=== PATIENT | female | born 1970 | race Caucasian/White ===

== ENCOUNTER → 2018-09-09 | Outpatient (CLI) | payer OTHER ==
--- NOTE | 2018-09-09 13:29 | MM ---
Reason for exam: additional evaluation requested from abnormal screening. History: Patient is postmenopausal and has history of other cancer at age 41. Family history of breast cancer in paternal grandmother at age 70 and breast cancer in paternal cousin at age 56. Physical Findings: Breast exam preformed at baseline screening. MG Work Up Mamm w CAD RT CC with magnification, ML with magnification, and ML view(s) were taken of the right breast. The breast tissue is heterogeneously dense. This may lower the sensitivity of mammography. Focal asymmetry associated with calcifications is in the right upper outer quadrant 5cm from nipple at 10-11 o'clock. There are 4 definitive calcifications. 6 month follow up recommended. These results were verbally communicated with the patient and result sheet given to the patient on 09/09/18. ASSESSMENT: Probably benign, BI-RAD 3 RECOMMENDATION: Follow-up diagnostic mammogram of the right breast in 6 months.
--- NOTE | 2018-09-09 13:29 | MM ---
Reason for exam: screening (asymptomatic). Baseline mammogram. History: Patient is postmenopausal and has history of other cancer at age 41. Family history of breast cancer in paternal grandmother at age 70 and breast cancer in paternal cousin at age 56. Physical Findings: Nurse Summary: bilateral nodularity all soft, movable (nurse ts). MG Screening Mammo w CAD Bilateral CC and MLO view(s) were taken. The breast tissue is heterogeneously dense. This may lower the sensitivity of mammography. There are few calcifications in the upper outer quadrant at middle depth. No suspicious abnormality on left breast. These results were verbally communicated with the patient and result sheet given to the patient on 09/09/18. ASSESSMENT: Incomplete: need additional imaging evaluation, BI-RAD 0 RECOMMENDATION: Special view mammogram of the right breast.
--- NOTE | 2018-09-09 13:30 | USB ---
Reason for exam: additional evaluation requested from abnormal screening. History: Patient is postmenopausal and has history of other cancer at age 41. Family history of breast cancer in paternal grandmother at age 70 and breast cancer in paternal cousin at age 56. US Breast Workup Limited RT Right limited breast ultrasound including focal area of concern, retroareolar and axilla demonstrates no cystic or solid lesion seen. No sonographic solid or cystic mass. No suspicious sonographic finding. These results were verbally communicated with the patient and result sheet given to the patient on 09/09/18. ASSESSMENT: Probably benign, BI-RAD 3 RECOMMENDATION: Follow-up diagnostic mammogram of the right breast in 6 months.
== END | disposition home or self-care (01) ==
LOC: RADMAMWWP 10:50
PROVIDERS: ATTEND Family Medicine
DX: Z12.31 Encounter for screening mammogram for malignant neoplasm of breast (principal); R92.8 Other abnormal and inconclusive findings on diagnostic imaging of breast
CPT/HCPCS: 77065; 77067

== ENCOUNTER 2018-09-24 12:14 | Day surgery (SDC) | payer OTHER ==
[2018-09-19 13:58] VITALS: BMI 20.3
[~2018-09-24 12:14] MED LIST: LACTATED RINGERS 1,000 ML IV SCH
[2018-09-24] MEDS ORDERED: LIDOCAINE 1% 20 ML VIAL (10MG/ML) FOR IV START INTRADERMA ONE (12:27)
[2018-09-24 12:40] VITALS: TEMP 98.4
[2018-09-24] MEDS ORDERED: PROPOFOL 10 MG/ML 20 ML VIAL IV ONE (13:05)
--- NOTE | 2018-09-24 13:10 | P.GSHP ---
History of Present Illness H&P Date: 09/24/18 Chief Complaint: Screening colonoscopy This a 47-year-old female who presents today for screening colonoscopy. Patient has some change in bowel habits and increasing constipation. Past Medical History Past Medical History: Cancer Additional Past Medical History / Comment(s): "colon spasms constantly",change in bowel habit,Hx basal cell skin CA removed,anemia History of Any Multi-Drug Resistant Organisms: None Reported Past Surgical History: Section, Hysterectomy Additional Past Surgical History / Comment(s): c sect x2,D&C x2 Past Anesthesia/Blood Transfusion Reactions: Motion Sickness Additional Past Anesthesia/Blood Transfusion Reaction / Comment(s): no problems with prior blood transfusion Smoking Status: Current every day smoker - Past Family History Mother Family Medical History: Cancer Additional Family Medical History / Comment(s): breast CA Medications and Allergies Home Medications Medication Instructions Recorded Confirmed Type clonazePAM [KlonoPIN] 2 mg PO BID 09/19/18 09/24/18 History Allergies Allergy/AdvReac Type Severity Reaction Status Date / Time No Known Allergies Allergy Verified 09/19/18 13:49 Surgical - Exam Vital Signs Temp Pulse Resp BP Pulse Ox 98.4 F 80 18 147/94 98 09/24/18 12:38 09/24/18 12:38 09/24/18 12:38 09/24/18 12:38 09/24/18 12:38 - General well developed, well nourished, no distress - Eyes PERRL - ENT normal pinna - Neck no masses - Respiratory normal expansion - Cardiovascular Rhythm: regular - Abdomen Abdomen: soft, non tender Assessment and Plan Assessment: We'll perform screening colonoscopy.
--- NOTE | 2018-09-24 13:22 | P.OP ---
Date of Procedure: 09/24/18 Preoperative Diagnosis: Screening colonoscopy Postoperative Diagnosis: Mild diverticulosis Procedure(s) Performed: Colonoscopy Anesthesia: MAC Surgeon: Manish Alba Pathology: none sent Condition: stable Disposition: PACU Description of Procedure: Patient's placed on the endoscopy table in the lateral position. She received IV sedation. Digital rectal exam was performed which revealed no abnormalities. Flexible colonoscope was then placed patient anus and passed throughout the entire colon. The ileocecal valve was visually is. The cecum, ascending and transverse colon appeared normal. In the descending; was mild diverticular changes. Scope summer back the rectum this appeared normal. Scope was withdrawn for patient.
[2018-09-24 13:52] VITALS: BP 99/61; PULSE 45; RESP 16
== END 2018-09-24 14:00 | disposition home or self-care (01) ==
LOC: ORWHC2ENDO 12:14
PROVIDERS: ATTEND Surgery
DX: K57.90 Diverticulosis of intestine, part unspecified, without perforation or abscess without bleeding (principal); K58.9 Irritable bowel syndrome, unspecified; R19.4 Change in bowel habit; K59.00 Constipation, unspecified; F17.200 Nicotine dependence, unspecified, uncomplicated; Z85.828 Personal history of other malignant neoplasm of skin; Z90.710 Acquired absence of both cervix and uterus; Z79.899 Other long term (current) drug therapy
CPT/HCPCS: 45378; J2704

== ENCOUNTER 2019-01-23 12:05 | Emergency (ER) | payer OTHER ==
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
[2019-01-23 14:07] VITALS: BP 110/65; PULSE 59; RESP 12; TEMP 98.2
== END 2019-01-23 14:03 | disposition home or self-care (01) ==
LOC: EC 12:05
DX: M54.2 Cervicalgia (principal); R51 Headache; R11.0 Nausea; F17.200 Nicotine dependence, unspecified, uncomplicated; Z85.828 Personal history of other malignant neoplasm of skin; Z79.899 Other long term (current) drug therapy; Z88.5 Allergy status to narcotic agent; V89.2XXA Person injured in unspecified motor-vehicle accident, traffic, initial encounter
CPT/HCPCS: 70450; 72125; 99284

== ENCOUNTER → 2019-03-13 | Outpatient (CLI) | payer OTHER ==
--- NOTE | 2019-03-13 10:06 | MM ---
Reason for exam: follow-up at short interval from prior study. Last mammogram was performed 6 months ago. History: Patient is postmenopausal and has history of other cancer at age 41. Family history of breast cancer in paternal grandmother at age 70 and breast cancer in paternal cousin at age 56. Physical Findings: Nurse did not find any significant physical abnormalities on exam. MG 3D Diag Mammo W/Cad RT CC and MLO view(s) were taken of the right breast. Prior study comparison: September 09, 2018, right breast MG work up mamm w CAD RT. September 09, 2018, bilateral MG screening mammo w CAD. The breast tissue is heterogeneously dense. This may lower the sensitivity of mammography. No significant new findings when compared with previous films. These results were verbally communicated with the patient and result sheet given to the patient on 03/13/19. ASSESSMENT: Benign, BI-RAD 2 RECOMMENDATION: Return to routine screening mammogram schedule for both breasts. Back on schedule.
== END | disposition home or self-care (01) ==
LOC: RADMAMWWP 08:58
PROVIDERS: ATTEND Family Medicine
DX: R92.8 Other abnormal and inconclusive findings on diagnostic imaging of breast (principal)
CPT/HCPCS: 77065; G0279; 77061

== ENCOUNTER 2020-02-25 15:46 | Emergency (ER) | payer OTHER ==
[2020-02-25] MEDS ORDERED: NITROGLYCERIN SL TABS 0.4 MG TAB SUBLINGUAL STA ×2 (15:55)
[2020-02-25] MEDS ORDERED: ASPIRIN 81 MG PO STA (15:55)
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
[2020-02-25 16:58] LABS: Basophils # (A) 0.1 k/uL (0-0.2); Basophils % (A) 1 %; Eosinophils # (A) 0.2 k/uL (0-0.7); Eosinophils % (A) 3 %; HCT 44.1 % (34.0-46.0); HGB 14.5 gm/dL (11.4-16.0); Lymphocytes # (A) 1.7 k/uL (1.0-4.8); Lymphocytes % (A) 24 %; MCH 30.7 pg (25.0-35.0); MCHC 32.9 g/dL (31.0-37.0); MCV 93.2 fL (80.0-100.0); Mean Platelet Volume 6.6; Monocytes # (A) 0.3 k/uL (0-1.0); Monocytes % (A) 4 %; Neutrophils # (A) 4.9 k/uL (1.3-7.7); Neutrophils % (A) 68 %; Platelet Count 221 k/uL (150-450); RBC 4.73 m/uL (3.80-5.40); RDW 13.3 % (11.5-15.5); WBC 7.3 k/uL (3.8-10.6)
[2020-02-25 17:12] LABS: ALT 14 U/L (4-34); AST 24 U/L (14-36); African American GFR (CKD) >90 (>60 ml/min/1.73 sqM); Albumin 4.4 g/dL (3.5-5.0); Alkaline Phosphatase 84 U/L (38-126); Anion Gap 6 mmol/L; Blood Urea Nitrogen 19 mg/dL (7-17); Calcium 9.8 mg/dL (8.4-10.2); Carbon Dioxide 25 mmol/L (22-30); Chloride 105 mmol/L (98-107); Glucose 98 mg/dL (74-99); Magnesium 1.9 mg/dL (1.6-2.3); Non-African American GFR(CKD) >90 (>60 ml/min/1.73 sqM); Potassium 4.3 mmol/L (3.5-5.1); Sodium 136 mmol/L (137-145); Total Bilirubin 0.5 mg/dL (0.2-1.3); Total Protein 7.2 g/dL (6.3-8.2)
--- NOTE | 2020-02-25 17:15 | XR ---
EXAMINATION: XR chest 2V DATE AND TIME: 02/25/2020 4:55 PM CLINICAL INDICATION: PHH; Chest Pain TECHNIQUE: Departmental protocol COMPARISON: None FINDINGS: The lungs are clear. The pleural spaces are negative. The cardiac silhouette is not enlarged. The remainder of the mediastinal silhouette is unremarkable. The skeletal structures and soft tissues are negative for acute findings. IMPRESSION: NO ACUTE PROCESS.
[2020-02-25 17:23] LABS: D-Dimer 0.44 mg/L FEU (<0.60); Partial Thromboplastin Time 22.6 sec (22.0-30.0)
[2020-02-25] MEDS ORDERED: traMADol 50 MG TAB PO STA (20:00)
[2020-02-25 20:42] VITALS: BP 109/71; PULSE 58; RESP 16; TEMP 98.7
== END 2020-02-25 20:36 | disposition home or self-care (01) ==
LOC: EC 15:46
DX: R07.9 Chest pain, unspecified (principal); R06.02 Shortness of breath; R00.2 Palpitations; F41.9 Anxiety disorder, unspecified; F17.200 Nicotine dependence, unspecified, uncomplicated; Z79.899 Other long term (current) drug therapy; Z88.5 Allergy status to narcotic agent; Z85.828 Personal history of other malignant neoplasm of skin
CPT/HCPCS: 36415; 71046; 80053; 83735; 84484; 85025; 85379; 85610; 85730; 93005; 99285

== ENCOUNTER → 2020-12-20 | Outpatient (CLI) | payer BC, OTHER ==
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
--- NOTE | 2020-12-23 13:03 | MM ---
Reason for exam: screening (asymptomatic). Last mammogram was performed 1 year and 9 months ago. History: Patient is postmenopausal and has history of other cancer at age 41. Family history of breast cancer in paternal grandmother at age 70 and breast cancer in paternal cousin at age 56. Physical Findings: A clinical breast exam by your physician is recommended on an annual basis and results should be correlated with mammographic findings. MG 3D Screening Mammo W/Cad Bilateral CC and MLO view(s) were taken. Prior study comparison: March 13, 2019, right breast MG 3d diag mammo w/cad RT. September 09, 2018, right breast MG work up mamm w CAD RT. The breast tissue is heterogeneously dense. This may lower the sensitivity of mammography. No significant changes when compared with prior studies. ASSESSMENT: Benign, BI-RAD 2 RECOMMENDATION: Routine screening mammogram of both breasts in 1 year.
== END | disposition home or self-care (01) ==
LOC: RADMAMWWP 07:31
PROVIDERS: ATTEND Family Medicine
DX: Z12.31 Encounter for screening mammogram for malignant neoplasm of breast (principal); M81.8 Other osteoporosis without current pathological fracture; N95.1 Menopausal and female climacteric states
CPT/HCPCS: 77063; 77067; 77080

== ENCOUNTER 2021-05-04 10:05 | Day surgery (SDC) | payer BC, OTHER ==
[2021-05-03 10:56] VITALS: BMI 30.1
[~2021-05-04 10:05] MED LIST changes: +LIDOCAINE 1% (10MG/ML) FOR IV START INTRADERMA PRN
[2021-05-04 12:24] VITALS: RESP 16; TEMP 97.2
[2021-05-04] MEDS ORDERED: PROPOFOL 10 MG/ML 20 ML VIAL IV ONE (12:36)
--- NOTE | 2021-05-04 12:39 | P.GSHP ---
History of Present Illness H&P Date: 05/04/21 Chief Complaint: Diarrhea [employer] 50-year-old female who presents today for colonoscopy. She has issues with diarrhea. Past Medical History Past Medical History: Cancer Additional Past Medical History / Comment(s): "colon spasms constantly",change in bowel habit,Hx basal cell skin CA removed,anemia History of Any Multi-Drug Resistant Organisms: None Reported Past Surgical History: Section, Hysterectomy Additional Past Surgical History / Comment(s): D&C x2 Past Anesthesia/Blood Transfusion Reactions: Motion Sickness Additional Past Anesthesia/Blood Transfusion Reaction / Comment(s): no problems with prior blood transfusion Past Psychological History: Anxiety Smoking Status: Current every day smoker Past Alcohol Use History: Rare Past Drug Use History: Marijuana Additional Drug Use History / Comment(s): uses marijuana daily - Past Family History Mother Family Medical History: Cancer Additional Family Medical History / Comment(s): breast CA Father Family Medical History: Cancer Medications and Allergies Home Medications Medication Instructions Recorded Confirmed Type clonazePAM [KlonoPIN] 2 mg PO BID 09/19/18 05/03/21 History buPROPion XL [Wellbutrin XL] 300 mg PO HS 05/03/21 05/03/21 History Allergies Allergy/AdvReac Type Severity Reaction Status Date / Time codeine AdvReac Nausea & Verified 05/03/21 10:50 Vomiting Surgical - Exam Vital Signs Temp Pulse Resp BP Pulse Ox 97.2 F L 80 16 155/85 97 05/04/21 12:22 05/04/21 12:22 05/04/21 12:22 05/04/21 12:22 05/04/21 12:22 - General well developed, well nourished, no distress - Eyes PERRL - ENT normal pinna - Neck no masses - Respiratory normal expansion - Cardiovascular Rhythm: regular - Abdomen Abdomen: soft, non tender Assessment and Plan Assessment: Diarrhea will perform colonoscopy
--- NOTE | 2021-05-04 12:52 | P.OP ---
Date of Procedure: 05/04/21 Preoperative Diagnosis: Diarrhea Postoperative Diagnosis: Normal colon, rectal biopsy pathology pending Procedure(s) Performed: Colonoscopy Anesthesia: MAC Surgeon: Manish Alba Pathology: other (Rectum) Condition: stable Disposition: PACU Description of Procedure: The patient's placed on the endoscopy table in the lateral position. She received IV sedation. Digital rectal exam was performed which revealed no abnormalities. Flexible colonoscope was then placed patient anus passed throughout the entire colon. The ileocecal valve was visually is. The cecum, ascending and transverse colon appeared normal. The descending and sigmoid colon appeared normal. Copious was then brought back the rectum there is no evidence of any inflammation. Due to the patient's symptoms of diarrhea a random rectal biopsies performed. The scope was withdrawn for patient.
[2021-05-04 13:14] VITALS: BP 114/78; PULSE 62
== END 2021-05-04 14:01 | disposition home or self-care (01) ==
LOC: ORWHC2ENDO 10:05
PROVIDERS: ATTEND Surgery
DX: R19.7 Diarrhea, unspecified (principal); F17.200 Nicotine dependence, unspecified, uncomplicated; F41.9 Anxiety disorder, unspecified; K58.0 Irritable bowel syndrome with diarrhea; K62.1 Rectal polyp; Z80.3 Family history of malignant neoplasm of breast; Z85.828 Personal history of other malignant neoplasm of skin; Z88.5 Allergy status to narcotic agent
CPT/HCPCS: 45380; 88305; J2704

== ENCOUNTER → 2021-07-14 | Outpatient (CLI) | payer BC, OTHER ==
--- NOTE | 2021-07-14 08:08 | CT ---
EXAMINATION TYPE: CT abdomen wo con DATE OF EXAM: 07/14/2021 HISTORY: Severe abdominal pain and explosive diarrhea CT DLP: 517 mGycm. Automated Exposure Control for Dose Reduction was Utilized. TECHNIQUE: CT scan of the abdomen is performed without oral or IV contrast. COMPARISON: NONE FINDINGS: Within the limitations of a non-contrast study, the following observations are made. LUNG BASES: No significant abnormality is appreciated. LIVER/GB: No significant abnormality is appreciated. PANCREAS: No significant abnormality is seen. SPLEEN: No significant abnormality is seen. ADRENALS: No significant abnormality is seen. KIDNEYS: No renal calculi or hydronephrosis seen bilaterally. BOWEL: No significant abnormality is seen. LYMPH NODES: No greater than 1cm abdominal lymph nodes are appreciated. OSSEOUS STRUCTURES: Focal mild to moderate disc space narrowing with endplate sclerosis and anterior T10-T11 level . OTHER: Mild to moderate calcified plaque of the aorta extends into branch vessels. IMPRESSION: No acute findings identified on noncontrast CT abdomen study.
== END | disposition home or self-care (01) ==
LOC: RADCTMAIN 07:08
PROVIDERS: ATTEND Family Medicine
DX: R63.4 Abnormal weight loss (principal)
CPT/HCPCS: 74150

== ENCOUNTER → 2021-09-13 | Outpatient (CLI) | payer BC, OTHER ==
--- NOTE | 2021-09-13 13:08 | CT ---
EXAMINATION TYPE: CT urogram wo/w con DATE OF EXAM: 09/13/2021 INDICATION: Gross hematuria. CT DLP: 3637 mGy.cm Automated Exposure Control for Dose Reduction was Utilized. TECHNIQUE AND CONTRAST: CT scan of the abdomen and pelvis is performed without and with IV Contrast, as per CT urogram protoc ol. The patient was injected with 100 mL of Isovue M300. 3-D reconstruction images were generated on a separate workstation and reviewed. COMPARISON: CT dated 07/14/2021 FINDINGS: Questionable tiny 1 mm right upper pole renal calculus versus artifact, otherwise no definite radiode nse urinary calculi. No hydroureter or hydronephrosis. No definite renal lesion identified. No fillin g defect is seen within the renal collecting system or the opacified portions of the ureters. No rey s ureteric lesion. The urinary bladder is not completely distended and grossly unremarkable. Previous subtotal hysterect minor with adhesions between the cervical stump, the urinary bladder and the sigmoid colon. No extravas ation of the contrast from the urinary bladder into the adjacent structures. Enlarged liver measuring 18.5 cm. No definite hepatic focal lesion. Unremarkable gallbladder, spleen, pancreas and adrenals. Scattered arterial atherosclerotic calcifications. Unremarkable stomach, duod enum and small bowel. Scattered uncomplicated colonic diverticulosis. Normal appendix. No suspicious lymphadenopathy or sizable ascites. Small fat-containing umbilical her phani. Degenerative changes of the lower thoracic spine. No aggressive bone lesion. Unremarkable lung b ases. IMPRESSION: No definite suspicious urinary lesion identified. No hydroureter or hydronephrosis. Suspected pelvic adhesions and other incidental findings as detailed above.
== END | disposition home or self-care (01) ==
LOC: RADCTMAIN 09:58
PROVIDERS: ATTEND Urology
DX: R31.0 Gross hematuria (principal)
CPT/HCPCS: 74178; 74400; Q9967

== ENCOUNTER 2022-04-18 14:23 | Emergency (ER) | payer BC, OTHER ==
[2022-04-18 15:30] VITALS: BP 136/81; PULSE 63; RESP 20; TEMP 97.7
--- NOTE | 2022-04-18 16:18 | XR ---
EXAMINATION TYPE: XR chest 2V DATE OF EXAM: 04/18/2022 COMPARISON: Chest x-ray February 25, 2020 HISTORY: Productive cough. COVID positive. TECHNIQUE: Frontal and lateral views of the chest are obtained. FINDINGS: Mild underlying emphysematous change is felt Present. There is no suspicious new focal air space opacity, pleural effusion, or pneumothorax seen. The cardiac silhouette size is stable and wit hin normal limits. The osseous structures are intact. IMPRESSION: No acute pulmonary infiltrate. No significant change from prior.
--- NOTE | 2022-04-18 16:26 | ED ---
URI HPI - General Chief Complaint: Upper Respiratory Infection Stated Complaint: chest congestion Time Seen by Provider: 04/18/22 15:59 Source: patient Mode of arrival: ambulatory Limitations: no limitations - History of Present Illness Initial Comments: Patient is a 51-year-old female who presents to the emergency department with the chief complaint of productive cough. Patient states she had a positive COVID-19 test one week ago. Reports congestion and body aches. Over the past couple days she has developed cough with clear sputum. Patient is concerned that she has pneumonia. Denies fever, chills, chest pain, shortness of breath, nausea, vomiting. Denies history of COPD and asthma. - Related Data Home Medications Medication Instructions Recorded Confirmed clonazePAM [KlonoPIN] 2 mg PO BID 09/19/18 05/03/21 buPROPion XL [Wellbutrin XL] 300 mg PO HS 05/03/21 05/03/21 Allergies Allergy/AdvReac Type Severity Reaction Status Date / Time codeine AdvReac Nausea & Verified 04/18/22 15:30 Vomiting Review of Systems ROS Statement: Those systems with pertinent positive or pertinent negative responses have been documented in the HPI. ROS Other: All systems not noted in ROS Statement are negative. Past Medical History Past Medical History: Cancer Additional Past Medical History / Comment(s): "colon spasms constantly",change in bowel habit,Hx basal cell skin CA removed,anemia History of Any Multi-Drug Resistant Organisms: None Reported Past Surgical History: Section, Hysterectomy Additional Past Surgical History / Comment(s): D&C x2 Past Anesthesia/Blood Transfusion Reactions: Motion Sickness Additional Past Anesthesia/Blood Transfusion Reaction / Comment(s): no problems with prior blood transfusion Past Psychological History: Anxiety Smoking Status: Current every day smoker Past Alcohol Use History: Rare Past Drug Use History: Marijuana - Past Family History Mother Family Medical History: Cancer Additional Family Medical History / Comment(s): breast CA Father Family Medical History: Cancer General Exam Limitations: no limitations General appearance: alert, in no apparent distress Head exam: Present: atraumatic, normocephalic, normal inspection Respiratory exam: Present: normal lung sounds bilaterally. Absent: respiratory distress, wheezes, rales, rhonchi, stridor Cardiovascular Exam: Present: regular rate, normal rhythm, normal heart sounds. Absent: systolic murmur, diastolic murmur, rubs, gallop, clicks Neurological exam: Present: alert, oriented X3, CN II-XII intact Psychiatric exam: Present: normal affect, normal mood Skin exam: Present: warm, dry, intact, normal color. Absent: rash Course Vital Signs 04/18/22 15:26 Temperature 97.7 F Pulse Rate 63 Respiratory 20 Rate Blood Pressure 136/81 O2 Sat by Pulse 98 Oximetry Medical Decision Making - Medical Decision Making This is a 51-year-old female presenting with productive cough. No abnormal lung sounds. No fever. COVID-19 is detected. Chest x-ray is negative for acute process. Patient will be discharged with fluticasone for congestion. Return parameters discussed. Dr. Arreola is my attending. - Lab Data Lab Results 04/18/22 04/18/22 Range/Units 15:32 15:32 Coronavirus (PCR) Detected A (Not Detectd) Influenza Type A RNA Not Detected (Not Detectd) Influenza Type B (PCR) Not Detected (Not Detectd) Disposition Clinical Impression: COVID-19 Disposition: HOME SELF-CARE Condition: Good Instructions (If sedation given, give patient instructions): Coronavirus Disease 2019 (COVID-19) Additional Instructions: Quarantine at home for 5 days. Follow up with primary care provider in 1-2 days. Return to the ED if you experience new, concerning, or worsening symptoms. Is patient prescribed a controlled substance at d/c from ED?: No Referrals: Stephane Barger MD [Primary Care Provider] - 1-2 days Time of Disposition: 16:25
[2022-04-18] MEDS ORDERED: FLUTICASONE 50MCG/SPRAY NASAL 16GM EA NOSTRIL STA (16:33)
== END 2022-04-18 17:07 | disposition home or self-care (01) ==
LOC: EC 14:23
DX: U07.1 COVID-19 (principal); Z88.5 Allergy status to narcotic agent
CPT/HCPCS: 71046; 87502; 87635; 99283

== ENCOUNTER → 2023-04-29 | Outpatient (CLI) | payer BC, OTHER ==
--- NOTE | 2023-04-30 18:44 | MM ---
Reason for Exam: Screening (asymptomatic). Last mammogram was performed 2 year(s) and 5 month(s) ago. Patient History: Menarche at age 12. First Full-Term at age 28. Late child-bearing (after 28). Left ovary removed at age 43. Right ovary removed at age 43. Hysterectomy at age 43. Postmenopausal. Other cancer, age 41. Paternal grandmother had breast cancer, age 70. Paternal cousin had breast cancer, age 56. Risk Values: Mary 5 year model risk: 1.4%. NCI Lifetime model risk: 10.4%. Prior Study Comparison: 09/09/2018 Right Diagnostic Mammogram, [facility]. 03/13/2019 Right Diagnostic Mammogram, [facility]. 12/20/2020 Bilateral Screening Mammogram, [facility]. Tissue Density: The breast tissue is heterogeneously dense. This may lower the sensitivity of mammography. Findings: Analyzed By CAD. There is no suspicious group of microcalcifications or new suspicious mass in either breast. Overall Assessment: Negative, BI-RAD 1 Management: Screening Mammogram of both breasts in 1 year. . Patient should continue monthly self-breast exams. A clinical breast exam by your physician is recommended on an annual basis. This exam should not preclude additional follow-up of suspicious palpable abnormalities. Note on Mary scores and lifetime risk: 1. A Mary score greater than 3% is considered moderate risk. If this is the case, consider specialist referral to assess eligibility for a risk reducing agent. 2. If overall lifetime risk for the development of breast cancer is 20% or higher, the patient may qualify for future screening with alternating mammogram and breast MRI. Electronically signed and approved by: Rick Jimenez M.D. Radiologist
== END | disposition home or self-care (01) ==
LOC: RADMAMWWP 16:33
PROVIDERS: ATTEND Family Medicine
DX: Z12.31 Encounter for screening mammogram for malignant neoplasm of breast (principal); Z80.3 Family history of malignant neoplasm of breast; Z78.0 Asymptomatic menopausal state
CPT/HCPCS: 77063; 77067

== ENCOUNTER → 2025-01-19 | Outpatient (CLI) | payer BC ==
--- NOTE | 2025-01-19 13:47 | XR ---
EXAMINATION TYPE: XR knee complete bilateral DATE OF EXAM: 01/19/2025 COMPARISON: NONE CLINICAL INDICATION: Female, 54 years old with history of M25.561; TECHNIQUE: Three views bilateral are submitted. FINDINGS: Mild bilateral medial compartment narrowing with marginal spurring. Tiny enthesophytes of the bilater al patella. Osseous structures are intact. No acute fracture seen. IMPRESSION: 1. Mild osteoarthritis. [facility], , 01/19/2025 1:44 PM
== END | disposition home or self-care (01) ==
LOC: RADXRMAIN 12:40
PROVIDERS: ATTEND Family Medicine
DX: M17.0 Bilateral primary osteoarthritis of knee (principal)